=== PATIENT | female | born 1990 | race Caucasian/White ===

== ENCOUNTER 2024-01-31 20:38 | Emergency (ER) | payer OTHER, MEDICAID ==
[2024-01-31] MEDS: traMADol 50 MG Tab PO STA (21:26)
[2024-01-31] MEDS: Ketorolac 30 MG/ML SDV IM STA (21:27)
== END 2024-02-01 00:02 | disposition home or self-care (01) ==
LOC: FB.ED 20:38
DX: M72.2 Plantar fascial fibromatosis (principal); M19.072 Primary osteoarthritis, left ankle and foot; Z91.040 Latex allergy status; Z91.018 Allergy to other foods; Z79.899 Other long term (current) drug therapy
CPT/HCPCS: 73630; 96372; 99283; A9270; J1885

== ENCOUNTER 2025-03-17 14:23 | Emergency (ER) | payer OTHER, MEDICAID | END 2025-03-17 15:00 | disposition home or self-care (01) | LOC: FB.ED 14:23 | DX: T38.3X1A Poisoning by insulin and oral hypoglycemic [antidiabetic] drugs, accidental (unintentional), initial encounter (principal); T43.621A Poisoning by amphetamines, accidental (unintentional), initial encounter; T47.1X1A Poisoning by other antacids and anti-gastric-secretion drugs, accidental (unintentional), initial encounter; T43.591A Poisoning by other antipsychotics and neuroleptics, accidental (unintentional), initial encounter; T45.0X1A Poisoning by antiallergic and antiemetic drugs, accidental (unintentional), initial encounter; T43.221A Poisoning by selective serotonin reuptake inhibitors, accidental (unintentional), initial encounter; Z91.040 Latex allergy status; Z91.09 Other allergy status, other than to drugs and biological substances; Z79.899 Other long term (current) drug therapy | CPT/HCPCS: 99283 ==